=== PATIENT | male | born 1975 | race Caucasian/White ===

== ENCOUNTER → 2017-09-17 | Outpatient (CLI) | payer BC | LOC: CIMAGING 14:37 | PROVIDERS: ATTEND Family Medicine | DX: M51.34 Other intervertebral disc degeneration, thoracic region (principal); M50.31 Other cervical disc degeneration, high cervical region | CPT/HCPCS: 72040-PO ==

== ENCOUNTER → 2017-10-19 | Outpatient (CLI) | payer BC | LOC: CIMAGING 17:05 | PROVIDERS: ATTEND Family Medicine | DX: R31.9 Hematuria, unspecified (principal); R10.9 Unspecified abdominal pain; R93.421 Abnormal radiologic findings on diagnostic imaging of right kidney | CPT/HCPCS: 74018-PO ==

== ENCOUNTER → 2017-10-22 | Outpatient (CLI) | payer BC | LOC: CIMAGING 11:24 | PROVIDERS: ATTEND Family Medicine | DX: N13.1 Hydronephrosis with ureteral stricture, not elsewhere classified (principal); K38.8 Other specified diseases of appendix | CPT/HCPCS: 74176-PO ==

== ENCOUNTER → 2017-10-27 | Outpatient (CLI) | payer BC ==
[~2017-10-27] MED LIST: GADOBUTROL 10 ML VIAL IVP ONE
== END ==
LOC: FIMAGING 09:29
PROVIDERS: ATTEND Psychiatry & Neurology Neurology
DX: R20.2 Paresthesia of skin (principal)
CPT/HCPCS: A9585

== ENCOUNTER → 2017-11-05 | Outpatient (CLI) | payer BC | LOC: FIMAGING 12:18 | PROVIDERS: ATTEND Physician Assistant | DX: N20.1 Calculus of ureter (principal) ==

== ENCOUNTER → 2017-11-06 | Outpatient (CLI) | payer BC | LOC: CIMAGING 09:40 | PROVIDERS: ATTEND Physician Assistant | DX: Z13.89 Encounter for screening for other disorder (principal); Z87.442 Personal history of urinary calculi | CPT/HCPCS: 76770-PO ==